=== PATIENT | female | born 1985 | race Caucasian/White ===

== ENCOUNTER 2021-05-16 17:38 | Outpatient (CLI) | payer OTHER, SELFPAY ==
[2021-05-16 17:54] LABS: Basophils Absolute Auto 0.1 K/mm3 (0.0-0.1); Basophils Percent Auto 0.7 % (0.2-1.2); Eosinophils Absolute Auto 0.2 K/mm3 (0-0.3); Eosinophils Percent Auto 2.5 % (0-4.4); Hemoglobin 13.2 g/dL (12.0-15.0); Immature Granulocyte Absolute 0.02 K/mm3 (0.00-0.031); Immature Granulocyte Percent A 0.3 % (0-0.5); Lymphocytes Absolute Auto 1.41 K/mm3 (0.9-3.2); Lymphocytes Percent Auto 21.1 % (18.3-44.2); Mean Corpuscular HGB Conc 33.8 g/dl (32-36); Mean Corpuscular Hemoglobin 31.1 pg (26-34); Mean Corpuscular Volume 91.8 fl (80-100); Monocytes Absolute Auto 0.5 K/mm3 (0.1-0.6); Monocytes Percent Auto 7.3 % (2.6-8.5); Neutrophils Absolute Auto 4.6 K/mm3 (1.3-6.7); Neutrophils Percent Auto 68.1 % (45.5-73.1); Platelet Count Result 362 k/mm3 (150-375); Red Blood Count 4.25 M/mm3 (4.2-5.4); Red Cell Distribution Width 12.4 % (11.5-14.5); White Blood Count 6.7 K/mm3 (4.5-10.0)
[2021-05-16 18:05] LABS: Alanine Aminotransferase 15 U/L (4-35); Albumin Level 4.3 g/dL (3.5-5.1); Alkaline Phosphatase 80 U/L (38-126); Anion Gap 9 mmol/L (8-16); Aspartate Amino Transferase 22 U/L (14-36); Bilirubin,Total 0.4 mg/dL (0.2-1.3); Blood Urea Nitrogen 5 mg/dL (7-17); Calcium 9.3 mg/dL (8.4-10.2); Carbon Dioxide 25 mmol/L (22-30); Chloride 101 mmol/L (98-107); Estimated Glomerular Filt Rate > 60; Glucose 95 mg/dL (65-110); Potassium 3.7 mmol/L (3.4-5.0); Sodium 135 mmol/L (137-145)
== END 2021-05-16 17:39 | disposition home or self-care (01) ==
LOC: ANHLAB 17:41
PROVIDERS: PCP Family Medicine; Visit Provider Family Medicine
DX: R53.83 Other fatigue (principal)
CPT/HCPCS: 36415; 80053; 85025

== ENCOUNTER 2021-10-27 15:55 | Outpatient (CLI) | payer OTHER, SELFPAY ==
--- NOTE | ~2021-10-27 | CT_ITS ---
EXAMINATION: CT abdomen pelvis wo con DATE: 10/27/2021 16:14 INDICATION: Hematuria TECHNIQUE: Computed tomography (CT) of the abdomen and pelvis was performed without intravenous contr ast. The dose-length product (DLP) was 461.02 mGy-cm. Automated exposure control and iterative recons truction technique were employed. COMPARISON: None FINDINGS: The lung bases are clear. The heart size is normal. The liver, spleen, pancreas, gallbladde r, and adrenal glands are normal. The kidneys are unremarkable. No stones are identified in the kidne ys, ureters, or bladder. There is no hydronephrosis or hydroureter. No pathologically enlarged abdomi nal or pelvic lymph nodes are identified. There is no free intraperitoneal gas or evidence of bowel o bstruction. There is a small fat-containing umbilical hernia. There is a moderate volume of liquid st ool in the proximal colon. IMPRESSION: 1. No CT correlate for the patient's symptoms. Reviewed, dictated and finalized at location F.
== END 2021-10-27 15:56 | disposition home or self-care (01) ==
PROVIDERS: PCP Family Medicine; Visit Provider Physician Assistant
DX: R10.9 Unspecified abdominal pain (principal); R10.2 Pelvic and perineal pain; R31.9 Hematuria, unspecified
CPT/HCPCS: 74176

== ENCOUNTER 2023-03-20 15:45 | Outpatient (RCR) | payer OTHER, SELFPAY ==
--- NOTE | 2023-02-27 16:35 | BUPTOPEVAL1 ---
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 Has tried ice, heat, OTC medication, muscle relaxer which helped some initially Now and then pain will shot down outside of arm to elbow and sometimes to wrist. No tingling or numbness Has a posture support that can help a little sometimes Reported Pain Level Pain Score 4: Self Report Assessment PT Clinical Summary Pt presents w/ complaints of left shoulder pain that has persistent about one month. Evaluation shows multiple scapulothoracic and cervical muscles with increased tone, C7-T1 alignment deficit, abnormal postures, and discomfort related to C7 position. Patient will greatly benefit from physical therapy to address deficits and return to pain-free prior level of function Plan of Care Interventions Electrical Stimulation,Hot Pack/Cold Pack,Manual Therapy,Neuro Re-education,Therapeutic Activities, Therapeutic Exercise,Ultrasound PT Services Indicated Yes Treatment Frequency and 1-2x weekly x 4 weeks Duration These treatments will address the objective and functional deficits as defined above. The patient will be advanced safely and appropriately in order for the patient to progress towards his/her prior level of function. Additional exercises will be introduced and as well as a comprehensive home exercise program upon discharge, if needed, ?to ensure carryover of functional gains achieved in the clinic. This treatment plan has been reviewed and agreement upon by the patient.
--- NOTE | 2023-02-27 16:36 | OPREHPOC ---
Outpatient Therapy Plan of Care This is a Multidisciplinary Plan of Care that may contain components documented by all disciplines (PT, OT, and ST.) PT Goal 1 Goal Pt will be independent in HEP Pt will verbalize understanding of diagnosis and prognosis Target Visit 8 PT Problem 2 PT Problem #2 Pain PT Goal 1 Goal Pt will report greatest pain level at 3/10 or less to improve ADLs Target Visit 8 PT Goal 2 Goal Pt will report resolution of pain to return to PLOF Target Visit 12 PT Problem 3 PT Problem #3 Impaired Endurance PT Goal 1 Goal Pt will demo appropriate scapular alignment for entire therapy session without requiring cueing. Target Visit 8 PT Problem 4 PT Problem #4 Impaired Range of Motion PT Goal 1 Goal Pt will demo approrpiate thoracic ROM without pain . Target Visit 12
--- NOTE | 2023-03-20 16:18 | PTOPDC ---
Assessment and note entered by Xenia Fleming, PT Assessment Status Discharge Diagnosis pain in left shoulder Onset ~ 1 month Subjective Information Pt has not had any pain in more than a week. Has returned to her activities without issue. Is sleeping normal again. Hasn't had to take over the counter meds or a muscle relaxer. Self-percieved improvement: 100% Reported Pain Level Pain Score 0: Self Report Assessment PT Clinical Summary Pt has attended therapy consistently, been compliant in instructions and home exercises. She has already returned to a pain free prior level of function and met all her therapy goals. Pt HEP was updated, and pt was educated on when to return to therapy. Thus she is being discharged for completion of her plan of care
== END 2023-03-21 09:30 | disposition home or self-care (01) ==
LOC: ANHHIPT 15:45
PROVIDERS: PCP Physician Assistant Medical; Visit Provider Physician Assistant Medical
DX: M25.512 Pain in left shoulder (principal)
CPT/HCPCS: 97014; 97110; 97112; 97140; 97161; 97750; G0283

== ENCOUNTER 2023-08-29 09:02 | Outpatient (CLI) | payer OTHER, SELFPAY ==
--- NOTE | 2023-08-29 11:00 | NEURO_ITS ---
Impression: # Complains of numbness of left hand and at times pinky finger goes numb. # Left moderate Carpal Tunnel Syndrome # Ulnar to median cross innervation on elbow stimulation for ulnar nerve/recording at [facility]. # Normal needle/EMG exam. Nerve Conduction Studies Anti Sensory Summary Table Stim Site NR Peak (ms) P-T Amp (?V) Site1 Site2 Delta-P (ms) Dist (cm) Kevin (m/s) Left Median Anti Sensory (2-3nd Digit) Wrist 3.2 75.2 Wrist 2-3nd Digit 3.2 14.0 44 Wrist 3.4 82.5 Wrist 2-3nd Digit 3.2 14.0 44 Left Radial Anti Sensory (Base 1st Digit) Wrist 2.1 15.5 Wrist Base 1st Digit 2.1 0.0 Left Ulnar Anti Sensory (5th Digit) Wrist 2.9 61.4 Wrist 5th Digit 2.9 14.0 48 Motor Summary Table Stim Site NR Onset (ms) O-P Amp (mV) Site1 Site2 Delta-0 (ms) Dist (cm) Kevin (m/s) Left Median Motor (Abd Poll Brev) Wrist 4.5 3.7 Elbow Wrist 4.9 28.0 57 Elbow 9.4 4.8 ELB/ADM Wrist 0.5 0.0 ELB/ADM 4.0 10.0 Left Ulnar Motor (Abd Dig Minimi) Wrist 2.8 8.5 A Elbow Wrist 5.0 28.0 56 A Elbow 7.8 5.4 B Elbow Wrist 11.0 0.0 B Elbow 13.8 0.4 F Wave Studies NR F-Lat (ms) L-R F-Lat (ms) Left Median (Mrkrs) (Abd Poll Brev) 28.48 Left Ulnar (Mrkrs) (Abd Dig Min) 27.60 EMG Side Muscle Nerve Root Ins Act Fibs Amp Dur Recrt Comment Left 1stDorInt Ulnar C8-T1 Nml Nml Nml Nml Nml Left Ext Indicis Radial (Post Int) C7-8 Nml Nml Nml Nml Nml Left Ext Digitorum Radial (Post Int) C7-8 Nml Nml Nml Nml Nml Left BrachioRad Radial C5-6 Nml Nml Nml Nml Nml Left PronatorTeres Median C6-7 Nml Nml Nml Nml Nml Left Abd Poll Brev Median C8-T1 Nml Nml Nml Nml Nml Left ABD Dig Min Ulnar C8-T1 Nml Nml Nml Nml Nml MTDD
== END 2023-08-29 09:03 | disposition home or self-care (01) ==
PROVIDERS: PCP Physician Assistant Medical; Visit Provider Physician Assistant Medical
DX: R20.2 Paresthesia of skin (principal); G56.02 Carpal tunnel syndrome, left upper limb
CPT/HCPCS: 95886; 95909

== ENCOUNTER 2023-09-05 07:45 | Outpatient (RCR) | payer OTHER, SELFPAY ==
--- NOTE | 2023-09-05 10:52 | OTOPEVAL1 ---
Assessment and note entered by Pito Liu, ALEXANDRA/Margarito, CHT Evaluation Information Assessment Status Evaluation Diagnosis (L) carpal tunnel, Lesion of ulnar nerve (L) UE Subjective Information Patient reports symptoms began about 1.5 months ago. Describes her symptoms as numbness on her medial forearm and intermittently in the small finger tip. States the small finger can feel cold at times. 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 Assessment OT Clinical Summary Patient referred to OT with left sided tingling. EMG confirms median and ulnar nerve compression. Discussed and demonstrated workstation ergonomics and body mechanics to reduce repetitive nerve compression. Issued nerve glides. Discussed and demonstrated positioning for ADLs and sleeping to reduce prolonged nerve compression during the day. Patient to utilize these techniques and follow up in the next few weeks to assess efficacy of these interventions. Thank you for this referral. Plan of Care Interventions Therapeutic Activities OT Services Indicated Yes Treatment Frequency and Follow up in 4 weeks Duration These treatments will address the objective and functional deficits as defined above. The patient will be advanced safely and appropriately in order for the patient to progress towards his/her prior level of function. Additional exercises will be introduced and as well as a comprehensive home exercise program upon discharge, if needed, ?to ensure carryover of functional gains achieved in the clinic. This treatment plan has been reviewed and agreement upon by the patient.
--- NOTE | 2023-09-05 10:53 | OPREHPOC ---
Outpatient Therapy Plan of Care This is a Multidisciplinary Plan of Care that may contain components documented by all disciplines (PT, OT, and ST.) OT Problem 1 OT Problem #1 Knowledge Deficit OT Goal 1 Goal 1. Patient to be independent with instructed materials. Target Visit 2 OT Problem 2 OT Problem #2 Impaired Flexibility OT Goal 1 Goal 1. Patient to be able to complete ulnar nerve glides without reports of nerve aching . Target Visit 2 OT Problem 3 OT Problem #3 Impaired Sensation OT Goal 1 Goal 1. Patient to report reduced paresthesia in the left UE. Target Visit 2
--- NOTE | 2023-10-01 08:24 | OTOPDC ---
Assessment and note entered by Pito Liu, OTDylan/Margarito, CHT OT D/C Notification 10/01/23 OT Clinical Summary Patient referred to OT with signs and symptoms of mild ulnar nerve compression. She attended 1 session and was issued HEP for nerve glides and discussed work station ergonomics and UE positioning to reduce nerve compression. Verbally followed up with the patient after she was completing her HEP and making daily modifications and she reports her symptoms have resolved and she was ready to be discharged from therapy. No further skilled OT indicated at this time. Plan of Care OT Services Indicated No
== END 2023-11-26 10:30 | disposition home or self-care (01) ==
LOC: ANHHIOT 07:45
PROVIDERS: PCP Physician Assistant Medical; Visit Provider Physician Assistant Medical
DX: G56.20 Lesion of ulnar nerve, unspecified upper limb (principal); G56.02 Carpal tunnel syndrome, left upper limb
CPT/HCPCS: 97110; 97166

== ENCOUNTER 2025-02-11 08:34 | Outpatient (CLI) | payer OTHER, SELFPAY ==
[2025-02-11 09:31] LABS: Hematocrit 40.1 % (37.0-47.0); Hemoglobin 13.3 g/dL (12.0-15.0); Immature Granulocyte Percent A 0.2 % (0-0.5); Lymphocytes Absolute Auto 2.03 K/mm3 (0.9-3.2); Mean Corpuscular HGB Conc 33.2 g/dl (32-36); Mean Corpuscular Hemoglobin 30.9 pg (26-34); Mean Corpuscular Volume 93.3 fl (80-100); Nucleated Red Blood Cells Absolute Auto 0.000 K/mm3 (0.0-0.012); Nucleated Red Blood Cells Perc 0.0 % (0.0-0.2); Platelet Count Result 351 k/mm3 (150-375); Red Blood Count 4.30 M/mm3 (4.2-5.4); White Blood Count 5.6 K/mm3 (4.5-10.0)
[2025-02-11 09:59] LABS: Alanine Aminotransferase 13 U/L (6-35); Albumin Level 4.4 g/dL (3.5-5.1); Alkaline Phosphatase 55 U/L (38-126); Anion Gap 8 mmol/L (4-12); Aspartate Amino Transferase 21 U/L (14-36); Bilirubin,Total 0.7 mg/dL (0.2-1.3); Blood Urea Nitrogen 8 mg/dL (7-17); Calcium 9.0 mg/dL (8.4-10.2); Carbon Dioxide 26 mmol/L (22-30); Chloride 104 mmol/L (98-107); Cholesterol 180 mg/dL (0-200); Estimated Glomerular Filt Rate > 60; Glucose 98 mg/dL (65-110); HDL Direct 68 mg/dL; Magnesium 2.1 mg/dL (1.6-2.3); Potassium 3.9 mmol/L (3.4-5.0); Sodium 138 mmol/L (137-145); Total Protein 7.2 g/dL (6.3-8.2); Triglycerides 88 mg/dL (<150)
[2025-02-11 10:36] LABS: Thyroid Stimulating Hormone 3.670 uIU/mL (0.465-4.680)
[2025-02-11 10:55] LABS: Vitamin B12 324.0 pg/mL (239-931)
== END 2025-02-11 08:35 | disposition home or self-care (01) ==
LOC: ANHLAB 08:36
PROVIDERS: PCP Physician Assistant Medical; Visit Provider Physician Assistant Medical
DX: Z00.00 Encounter for general adult medical examination without abnormal findings (principal); F41.9 Anxiety disorder, unspecified; E55.9 Vitamin D deficiency, unspecified; E53.8 Deficiency of other specified B group vitamins; G43.909 Migraine, unspecified, not intractable, without status migrainosus
CPT/HCPCS: 36415; 80053; 80061; 82306; 82607; 83735; 84443; 85025